=== PATIENT | female | born 1955 | race Caucasian/White ===

== ENCOUNTER 2022-07-20 10:16 | Emergency (ER) | payer SELFPAY ==
[~2022-07-20] VITALS: Ht 152.4 cm; Wt 68.0 kg
[2022-07-20 10:23] VITALS: BP_SYST 109
--- NOTE | 2022-07-20 10:26 | NUR ---
PT [place] [facility], PT WAS GETTING UP FROM CHAIR AND SLIPPED AND FELL TO LEFT SIDE OF BODY. C/O LEFT SHOULDR/ARM/HAND PAIN. NO OBVIOUS DEFORMITY NOTED. PER REPORT SHE WAS GIVEN MORPHINE 4MG IM. PT C/O 10/10 PAIN AT THIS TIME. BP 109/64. RADIAL PULSES PRESENT. WILL CONT TO MONITOR.
--- NOTE | 2022-07-20 10:30 | NUR ---
DR JOSHI IN ROOM FOR EXAM
[2022-07-20] MEDS ORDERED: MORPHINE 4 MG INJ. 4 MG/ML VIAL IVP ONE (11:45)
[2022-07-20] MEDS ORDERED: IBUP-1969 PO (11:57)
[2022-07-20] MEDS ORDERED: HYDR-3917 PO (11:57)
--- NOTE | 2022-07-20 11:59 | NUR ---
PER DR JOSHI, PT TO BE ADMITTED FOR PAIN MANAGEMET, BUT PT STATS SHE PREFERS TO GO HOME AND F/U WITH [facility] IN AM.
[2022-07-20 12:03] LABS: BASOPHILS % (AUTO) 0.3 % (0.0-2.0); EOSINOPHILS % (AUTO) 0.4 % (0.0-4.0); HEMATOCRIT 41.9 % (36-48); LYMPHOCYTES # (AUTO) 1.9 K/uL (1.0-5.5); LYMPHOCYTES % (AUTO) 14.2 % (20.5-51.5); MEAN CORPUSCULAR HEMOGLOBIN 30 pg (27-31); MEAN CORPUSCULAR HGB CONC 33 % (32-36); MEAN CORPUSCULAR VOLUME 89 fL (79.0-98.0); MONOCYTES # (AUTO) 0.7 K/uL (0.0-1.0); MONOCYTES % (AUTO) 5.5 % (1.7-9.3); NEUTROPHILS # (AUTO) 10.4 K/uL (1.8-7.7); NEUTROPHILS % (AUTO) 79.6 % (40.0-70.0); PLATELET COUNT (AUTO) 186 K/uL (130-430); RED BLOOD CELL COUNT(AUTO) 4.73 MIL/uL (4.2-6.2)
[2022-07-20 12:09] LABS: CALCIUM 8.9 mg/dL (8.4-11.0); CREATININE 0.69 mg/dL (0.55-1.30)
[2022-07-20 12:15] LABS: ALBUMIN 3.6 g/dL (3.4-4.8); TOTAL BILIRUBIN 0.4 mg/dL (0.0-1.0)
--- NOTE | 2022-07-20 12:46 | NUR ---
SLING APPLIED, TOLERATED FAIRLY. SONS AT BEDSIDE TO ASSIST.
[2022-07-20] MEDS ORDERED: ONDA8TAB60 PO (12:53)
[2022-07-20] MEDS ORDERED: ONDANSETRON 4 MG ODT TAB ONE (12:54)
[2022-07-20] MEDS ORDERED: ONDANSETRON 4 MG ODT TAB PO ONE (13:00)
[2022-07-20 13:17] VITALS: BP_SYST 109
--- NOTE | 2022-07-20 13:17 | NUR ---
Patient given written and verbal discharge instructions and verbalizes understanding. ER MD discussed with patient the results and treatment provided. Patient in stable condition. ID arm band removed. IV catheter removed intact and dressing applied, no active bleeding. Rx of NORCO, MOTRIN, ZOFRAN given. Patient educated on pain management and to follow up with PMD. Pain Scale . Opportunity for questions provided and answered. Medication side effect fact sheet provided. INFORMED TO F/U WITH [facility] IN AM
== END 2022-07-20 13:17 | disposition home or self-care (01) ==
LOC: SED 10:16
DX: S42.212A Unspecified displaced fracture of surgical neck of left humerus, initial encounter for closed fracture (principal); Z79.899 Other long term (current) drug therapy; W07.XXXA Fall from chair, initial encounter; Y93.89 Activity, other specified; Y92.89 Other specified places as the place of occurrence of the external cause; Y99.8 Other external cause status
CPT/HCPCS: 99284; 96374; 80053; 85025; 36415; 73030; 73080; 73130; Q0162; J2270